=== PATIENT | female | born 1950 | race Caucasian/White ===

== ENCOUNTER 2023-03-21 00:24 | Inpatient (IN) | payer BC, MEDICARE ==
[2023-03-21] MEDS ORDERED: Morphine 4 MG/ML VIAL ONE ×2 (00:44→01:18)
[2023-03-21] MEDS ORDERED: Ondansetron PF 4 MG/2 ML Vial ONE (00:49)
[2023-03-21] MEDS ORDERED: TICAGRELOR 90 MG TABLET ONE (00:54)
[2023-03-21] MEDS ORDERED: Sodium Chloride 0.9% 1,000 ML BAG ONE (00:54)
[2023-03-21] MEDS ORDERED: Heparin 5,000 UNITS/ML VIAL ONE ×2 (01:04→01:14)
[2023-03-21 01:05] LABS: #Basophils 0.1 10x3/uL (0.0-0.2); #Eosinphils 0.2 10x3/uL (0.0-0.5); #Neutrophils 8.8 10x3/uL (1.5-8.4); %Basophils 0.4 % (0.0-2.0); %Lymphocytes 29.8 % (18.0-47.0); %Monocytes 6.9 % (0.0-10.0); %Neutrophils 61.3 % (40.0-75.0); Hemoglobin 12.7 g/dL (12.0-15.5); Mean Corpuscular Hemoglobin 30.8 pg (27.0-33.0); Mean Corpuscular Volume 93.2 fl (81.6-98.3); Mean Platelet Volume 9.6 fl (7.4-10.4); Platelet Count 285 10x3/uL (150-450); RBC Distribution Width 13.3 % (11.5-14.5); Red Blood Cell (RBC) Count 4.13 10x6/uL (3.90-5.03); White Blood Cell (WBC) Count 14.4 10x3/uL (3.5-10.5)
[2023-03-21] MEDS ORDERED: Heparin 25,000 units/D5W 500 ML ONE (01:05)
[2023-03-21 01:20] LABS: ALT (SGPT) 21 U/L (8-55); AST (SGOT) 20 U/L (5-34); Albumin 4.3 g/dL (3.4-4.8); Alkaline Phosphatase 81 U/L (40-110); Anion Gap 24 mmol/L (10-20); BUN (Urea Nitrogen) 15 mg/dL (9.8-20.1); Bilirubin, Total 0.3 mg/dL (0.2-1.2); Calc. Creatinine Clearance 0 mL/min (70-130); Calcium 9.5 mg/dL (7.8-10.44); Carbon Dioxide 15 mmol/L (23-31); Chloride 107 mmol/L (98-107); Estimated GFR 76; Globulin 2.9 g/dL (2.4-3.5); Glucose 219 mg/dL (83-110); Potassium 3.7 mmol/L (3.5-5.1); Protein, Total 7.2 g/dL (5.8-8.1); Sodium 142 mmol/L (136-145)
[2023-03-21] MEDS ORDERED: Nitroglycerin 50 MG/250 ML BOT 250 ML ONE (01:20)
[2023-03-21] MEDS ORDERED: Lidocaine 1% (PF) 30 ML VIAL ONE (01:20)
[2023-03-21] MEDS ORDERED: Lidocaine 1% MPF 2 ML VIAL ONE (01:20)
[2023-03-21] MEDS ORDERED: Heparin 10,000 UNITS/ 10 ML VIAL ONE (01:20)
[2023-03-21] MEDS ORDERED: Verapamil 5 MG/2 ML VIAL ONE (01:21)
[2023-03-21] MEDS ORDERED: Adenosine 6 MG/2 ML VIAL ONE (01:21)
[2023-03-21] MEDS ORDERED: Sodium Chloride 0.9% 1,000 ML ONE (01:22)
[2023-03-21] MEDS ORDERED: Fentanyl 100 MCG/2 ML VIAL ONE (01:32)
[2023-03-21] MEDS ORDERED: Midazolam HCl 2 mg/2 ml Vial ONE (01:33)
[2023-03-21 02:01] LABS: D-Dimer Test 0.52 mg/L FEU (0.19-0.50); PTT 24.6 sec (22.0-33.0); Prothrombin Time 10.5 sec (9.5-12.1)
[2023-03-21] MEDS ORDERED: Nitroglycerin 0.4 MG TAB (25 Tab Bottle) SL PRN (02:22)
[2023-03-21] MEDS ORDERED: CCU Insulin Drip FS ONE (02:28)
[2023-03-21 03:11] VITALS: BMI 25.9
[2023-03-21] MEDS ORDERED: hydrALAZINE 20 MG/ML VIAL SLOW IVP PRN (03:11)
[2023-03-21] MEDS ORDERED: Dextrose 5% in Water 1,000 ML IV PRN (03:15)
[2023-03-21] MEDS ORDERED: HumaLOG 300 UNITS/3 ML VIAL SC PRN (03:15)
[2023-03-21] MEDS ORDERED: Dextrose 50% Abboject 50 ML SYRINGE IVP PRN (03:15)
[2023-03-21] MEDS: Sodium Chloride 0.9% 1,000 ML IV SCH ×2 (03:16→12:15)
[2023-03-21 09:05] LABS: Troponin I 4.298 ng/mL (< 0.028)
[2023-03-21] MEDS ORDERED: Iopamidol 300 61% 100 ML VIAL FS ONE (09:08)
[2023-03-21] MEDS: TICAGRELOR 90 MG TABLET PO SCH ×2 (09:09→21:45)
[2023-03-21] MEDS: Aspirin Chewable 81 MG TAB PO SCH (09:09)
[2023-03-21] MEDS: Lisinopril 20 MG TAB PO SCH (09:09)
[2023-03-21] MEDS: Metoprolol Tartrate 25 MG TAB PO SCH ×2 (09:09→21:45)
[2023-03-21 13:34] LABS: Troponin I 5.035 ng/mL (< 0.028)
[2023-03-21 17:20] LABS: Troponin I 4.919 ng/mL (< 0.028)
[2023-03-21] MEDS ORDERED: Atorvastatin Calcium 40 MG TAB PO SCH (21:00)
[2023-03-22] MEDS: Sodium Chloride 0.9% 1,000 ML IV SCH ×2 (00:15→09:10)
[2023-03-22 00:33] LABS: Troponin I 3.544 ng/mL (< 0.028)
[2023-03-22 04:04] LABS: #Eosinphils 0.1 10x3/uL (0.0-0.5); #Monocytes 0.9 10x3/uL (0.0-1.1); #Neutrophils 6.4 10x3/uL (1.5-8.4); %Basophils 0.4 % (0.0-2.0); %Eosinophils 0.8 % (0.0-6.0); %Lymphocytes 30.3 % (18.0-47.0); %Monocytes 8.3 % (0.0-10.0); %Neutrophils 59.7 % (40.0-75.0); Hemoglobin 10.4 g/dL (12.0-15.5); Mean Corpuscular Hemoglobin 30.9 pg (27.0-33.0); Mean Corpuscular Volume 93.5 fl (81.6-98.3); Mean Platelet Volume 10.2 fl (7.4-10.4); Platelet Count 191 10x3/uL (150-450); RBC Distribution Width 13.2 % (11.5-14.5); Red Blood Cell (RBC) Count 3.37 10x6/uL (3.90-5.03); White Blood Cell (WBC) Count 10.7 10x3/uL (3.5-10.5)
[2023-03-22 04:08] LABS: ALT (SGPT) 17 U/L (8-55); AST (SGOT) 28 U/L (5-34); Albumin 3.4 g/dL (3.4-4.8); Alkaline Phosphatase 61 U/L (40-110); Anion Gap 12 mmol/L (10-20); BUN (Urea Nitrogen) 20 mg/dL (9.8-20.1); Bilirubin, Total 0.4 mg/dL (0.2-1.2); Calc. Creatinine Clearance 72 mL/min (70-130); Calcium 8.4 mg/dL (7.8-10.44); Carbon Dioxide 21 mmol/L (23-31); Chloride 112 mmol/L (98-107); Estimated GFR 83; Globulin 2.3 g/dL (2.4-3.5); Glucose 159 mg/dL (83-110); Potassium 3.6 mmol/L (3.5-5.1); Protein, Total 5.7 g/dL (5.8-8.1); Sodium 141 mmol/L (136-145)
[2023-03-22 04:24] LABS: Troponin I 3.016 ng/mL (< 0.028)
[2023-03-22 08:36] VITALS: TEMP 97.9
[2023-03-22] MEDS ORDERED: Carvedilol 3.125 MG TAB PO SCH ×2 (09:00→17:00)
[2023-03-22] MEDS: Aspirin Chewable 81 MG TAB PO SCH (09:09)
[2023-03-22] MEDS: Lisinopril 20 MG TAB PO SCH (09:09)
[2023-03-22] MEDS: TICAGRELOR 90 MG TABLET PO SCH (09:10)
[2023-03-22 09:11] VITALS: BP 128/71
== END 2023-03-22 11:43 | disposition home or self-care (01) | DRG 247 ==
LOC: CSHERS 00:24 → CSHTELE 01:37 → CSHIMCU 02:48 → CSHTELE 15:07
PROVIDERS: ADMIT Specialist; ATTEND Specialist
PROC: 027034Z Dilation of Coronary Artery, One Artery with Drug-eluting Intraluminal Device, Percutaneous Approach (ICD-10-PCS; principal; 2023-03-21)
PROC: 02C03ZZ Extirpation of Matter from Coronary Artery, One Artery, Percutaneous Approach (ICD-10-PCS; 2023-03-21)
PROC: 4A023N7 Measurement of Cardiac Sampling and Pressure, Left Heart, Percutaneous Approach (ICD-10-PCS; 2023-03-21)
PROC: B2111ZZ Fluoroscopy of Multiple Coronary Arteries using Low Osmolar Contrast (ICD-10-PCS; 2023-03-21)
PROC: B2151ZZ Fluoroscopy of Left Heart using Low Osmolar Contrast (ICD-10-PCS; 2023-03-21)
DX: I21.3 ST elevation (STEMI) myocardial infarction of unspecified site (principal); T82.897A Other specified complication of cardiac prosthetic devices, implants and grafts, initial encounter; I25.10 Atherosclerotic heart disease of native coronary artery without angina pectoris; Z95.5 Presence of coronary angioplasty implant and graft; E11.9 Type 2 diabetes mellitus without complications; I10 Essential (primary) hypertension; E78.5 Hyperlipidemia, unspecified; Y83.8 Other surgical procedures as the cause of abnormal reaction of the patient, or of later complication, without mention of misadventure at the time of the procedure
CPT/HCPCS: 36415; 36416; 71045; 80053; 84484; 85025; 85347; 85379; 85610; 85730; 92941; 93005; 93010; 93306; 93458; 94760; 94762; 96365; 96375; 96376; 99152; 99153; C1725; C1760; C1769; C1874; C1887; C9606; J0153; J1644; J1815; J2001; J2250; J2270; J2405; J3010; J7050; Q9967

== ENCOUNTER 2023-07-05 18:56 | Emergency (ER) | payer BC, MEDICARE ==
[2023-07-05 20:34] LABS: ALT (SGPT) 26 U/L (8-55); AST (SGOT) 26 U/L (5-34); Albumin 4.3 g/dL (3.4-4.8); Alkaline Phosphatase 96 U/L (40-110); Anion Gap 14 mmol/L (10-20); BUN (Urea Nitrogen) 17 mg/dL (9.8-20.1); Bilirubin, Total 0.4 mg/dL (0.2-1.2); Calc. Creatinine Clearance 0 mL/min (70-130); Calcium 9.6 mg/dL (7.8-10.44); Carbon Dioxide 22 mmol/L (23-31); Chloride 107 mmol/L (98-107); Estimated GFR 68; Globulin 3.1 g/dL (2.4-3.5); Glucose 127 mg/dL (83-110); Potassium 3.6 mmol/L (3.5-5.1); Protein, Total 7.4 g/dL (5.8-8.1); Sodium 139 mmol/L (136-145)
[2023-07-05 21:06] LABS: #Eosinphils 0.2 10x3/uL (0.0-0.5); #Monocytes 1.2 10x3/uL (0.0-1.1); #Neutrophils 7.3 10x3/uL (1.5-8.4); %Basophils 0.3 % (0.0-2.0); %Eosinophils 1.9 % (0.0-6.0); %Lymphocytes 24.1 % (18.0-47.0); %Neutrophils 63.3 % (40.0-75.0); Hematocrit 23.6 % (34.9-44.5); Hemoglobin 6.6 g/dL (12.0-15.5); Mean Corpuscular Hemoglobin 20.5 pg (27.0-33.0); Mean Corpuscular Volume 73.3 fl (81.6-98.3); Mean Platelet Volume 9.7 fl (7.4-10.4); Platelet Count 467 10x3/uL (150-450); RBC Distribution Width 19.7 % (11.5-14.5); Red Blood Cell (RBC) Count 3.22 10x6/uL (3.90-5.03); White Blood Cell (WBC) Count 11.6 10x3/uL (3.5-10.5)
[2023-07-05 21:07] LABS: Hypochromia MODERATE=16-30 cells (100X) (0-5/hpf); Microcytosis SLIGHT = 6-15 cells (100X) (0-5/hpf); Polychromasia SLIGHT = 2-3 cells (100X) (0-2/hpf)
[2023-07-05 21:08] LABS: Platelet Adequacy Comment Appears Increased
[2023-07-06 00:51] LABS: #Eosinphils 0.2 10x3/uL (0.0-0.5); #Monocytes 1.1 10x3/uL (0.0-1.1); #Neutrophils 6.3 10x3/uL (1.5-8.4); %Basophils 0.4 % (0.0-2.0); %Eosinophils 2.1 % (0.0-6.0); %Lymphocytes 29.2 % (18.0-47.0); %Neutrophils 57.8 % (40.0-75.0); Hematocrit 24.3 % (34.9-44.5); Mean Corpuscular HGB CONC 28.8 g/dL (32.0-36.0); Mean Corpuscular Hemoglobin 21.6 pg (27.0-33.0); Mean Platelet Volume 8.9 fl (7.4-10.4); Platelet Count 354 10x3/uL (150-450); RBC Distribution Width 20.3 % (11.5-14.5); Red Blood Cell (RBC) Count 3.24 10x6/uL (3.90-5.03); White Blood Cell (WBC) Count 10.9 10x3/uL (3.5-10.5)
[2023-07-06 03:34] LABS: Hypochromia SLIGHT = 6-15 cells (100X) (0-5/hpf); Macrocytosis SLIGHT = 6-15 cells (100X) (0-5/hpf)
[2023-07-06 03:35] LABS: Ovalocytes SLIGHT = 2-5 cells (100X) (0-1/hpf); Platelet Adequacy Comment Appears Adequate
== END 2023-07-06 02:21 | disposition home or self-care (01) ==
LOC: CSHERS 18:56
DX: D64.9 Anemia, unspecified (principal); F17.210 Nicotine dependence, cigarettes, uncomplicated; E11.9 Type 2 diabetes mellitus without complications; I10 Essential (primary) hypertension; I25.2 Old myocardial infarction; Z79.84 Long term (current) use of oral hypoglycemic drugs; Z79.899 Other long term (current) drug therapy
CPT/HCPCS: 36415; 36430; 80053; 82274; 85025; 86850; 86900; 86901; 99284; P9016